=== PATIENT | male | born 1970 | race Hispanic/Latino ===

== ENCOUNTER 2017-09-17 08:25 | Emergency (ER) | payer BC, SELFPAY ==
[2017-09-17 08:26] VITALS: BP 122/83; PULSE 100; RESP 18; TEMP 37.2; O2SAT 99; BMI 34.2
--- NOTE | 2017-09-17 08:43 | ED.VISSUMM ---
- ER Visit Summary Date of Service: 09/17/17 Chief Complaint: Nausea, vomiting, fever History of Present Illness: The patient is a 46 M who complains of a 24-hour history of nausea, vomiting, and diarrhea. He has had mild fever as well. He is complaining of diffuse abdominal cramping. He has mild body aches. Patient did eat at a buffet before symptom onset is not sure if he may have eaten something bad. He was given a motion sickness pill yesterday to help with the nausea and took 1 tablet Pepto. Patient denies any past medical or surgical history. Physical Examination: Blood pressure is 122/83, temperature 99 TA, heart rate 100, respiratory rate 18, pulse ox 99% on room air. The time of my evaluation his oral temperature is 98.9. Patient is resting comfortably in no acute distress. He is resting with his eyes closed but opens his eyes to voice and answers questions appropriately. Head and neck examination is grossly unremarkable. Heart is regular rate and rhythm. Lung sounds are clear. Abdomen is soft with no focal tenderness. He has hypoactive bowel sounds noted throughout. Test Results: CBC and chemistry studies are unremarkable. LFTs are normal. Emergency Department Course and Treatment: Patient was given IV fluids, Toradol, Zofran, and Bentyl. On repeat evaluation he is able tolerate p.o. fluids and does feel improved. We discussed the possibility of food poisoning as he did eat at a buffet recently. I advised him that the care is all supportive at this time and symptoms should resolve shortly. He will be given prescriptions for Zofran and Bentyl at home. Treatment Plan: [] Disposition: Discharge Impression: Gastroenteritis This note was generated with [facility] dictation software. It may contain incorrect words, spelling, and punctuation that were not noted in review of the chart prior to signing ED Disposition - Plan for ED Patient: Disposition: Home or Assisted Living Chief Complaint: Nausea/Vomiting Instructions: ED Food Poison Or Gastroenteritis Prescriptions: Ondansetron [Zofran Odt] 4 mg PO Q8H PRN PRN #10 tablet PRN Reason: Nausea Dicyclomine HCl [Bentyl] 20 mg PO TIDAC #20 capsule Referrals: NOT,DEFINED [NON-STAFF] -
[2017-09-17] MEDS: Dicyclomine 20 MG/2 ML Vial IM (08:58)
[2017-09-17] MEDS: Ketorolac 30 MG/ML Syringe IV (08:58)
[2017-09-17] MEDS: Ondansetron 4 MG/2 ML Vial IV (08:58)
[2017-09-17] MEDS: 0.9% Normal Saline 1,000 ML 1000 ML IV (08:58)
[2017-09-17 09:15] LABS: Absolute Lymphocyte Count 0.35 X10^3/ul (0.83-4.51); Absolute Neutrophil Count 6.9 X10^3/uL (2.0-7.7); Differential Indicated SCAN CRITERIA MET; Eosinophil# 0.01 X10^3/uL; Eosinophils% 0.1 % (0-5); Hematocrit 45.1 % (40-54); Hemoglobin 15.3 g/dl (13.0-16.5); Lymphocyte # 0.35 X10^3/ul (4.0); Lymphocyte % 4.6 % (19-41); Mean Corp Hgb Conc 33.9 g/gl (32-36); Mean Corpuscular Hgb 31.6 pg (27.0-32.0); Mean Corpuscular Volume 93.2 fL (80-94); Mean Platelet Vol. 10.8 fl (6.2-12.0); Monocyte# 0.43 X10^3/uL; Monocyte% 5.6 % (0-10); Neutrophil # 6.88 X10^3/uL (2.7-7.7); Neutrophil % 89.6 % (47-70); POSITIVE COUNT NO; POSITIVE DIFFERENTIAL YES; POSITIVE MORPHOLOGY NO; Platelet Count 209 K/mm3 (150-450); RBC Distribution Width CV 13.4 % (11.6-14.6); Red Blood Count 4.84 M/mm3 (4.6-6.2); White Blood Count 7.7 K/mm3 (4.4-11.0)
[2017-09-17 09:40] LABS: ALB/GLOB Ratio 0.8 RATIO (0.9-2.4); AST(SGOT) 42 U/L (15-37); Alanine Aminotransfer ALT/SGPT 34 U/L (16-61); Albumin, Serum 3.3 g/dL (3.2-5.0); Alkaline Phosphatase 79 U/L (45-117); Anion Gap 5 (5-15); BUN 16 mg/dL (7-18); BUN/Creat Ratio 15.2 RATIO (10-20); Calcium,Total 7.9 mg/dL (8.5-10.1); Chloride 110 mmol/L (98-107); Creatinine, Serum 1.05 mg/dL (0.70-1.30); EST Glomerular Filtration Rate 81 mL/min (>60); Est Glom Filt Rate - Afr Amer 97 mL/min (>60); Estimated Creatinine Clearance 99.35 ml/min; Globulin 4.2 g/dL (2.2-4.2); Glucose 100 mg/dL (74-106); Potassium 4.8 mmol/L (3.5-5.1); Protein, Total 7.5 g/dL (6.4-8.2); Sodium Level 138 mmol/L (136-145)
--- NOTE | 2017-09-17 11:20 | ED.DEP ---
ED Disposition - Plan for ED Patient: Disposition: Home or Assisted Living Chief Complaint: Nausea/Vomiting Instructions: ED Food Poison Or Gastroenteritis Prescriptions: Ondansetron [Zofran Odt] 4 mg PO Q8H PRN PRN #10 tablet PRN Reason: Nausea Dicyclomine HCl [Bentyl] 20 mg PO TIDAC #20 capsule Referrals: NOT,DEFINED [NON-STAFF] -
[2017-09-17 11:43] VITALS: BP 111/69; PULSE 76; RESP 14; O2SAT 98
== END 2017-09-17 11:48 | disposition home or self-care (01) ==
PROVIDERS: Emergency Provider Emergency Medicine
DX: K52.9 Noninfective gastroenteritis and colitis, unspecified (principal)
CPT/HCPCS: 80053; 85025; 96361; 96372; 96374; 96375; 99283; J7030; A4216; J2405